=== PATIENT | female | born 1985 | race Caucasian/White ===

== ENCOUNTER 2018-08-26 12:53 | Emergency (ER) | payer BC ==
[2018-08-26 13:27] VITALS: BP 123/68
--- NOTE | 2018-08-26 13:48 | UC ---
Hand/Wrist HPI - HPI Summary HPI Summary: Fall a few days ago walking and playing in a [place] with children while wearing flip flops. 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 There is some diffuse tingling of the fingers. NO prior fracture or surgery to that arm. - History Of Current Complaint Chief Complaint: UCUpperExtremity Stated Complaint: S/P FALL,RIGHT ARM INJURY Time Seen by Provider: 08/26/18 13:32 Hx Obtained From: Patient Hx Last Menstrual Period: 08/17/18 Onset/Duration: Sudden Onset, Lasting Days, Still Present Severity Initially: Moderate Severity Currently: Moderate Pain Intensity: 6 Pain Scale Used: 0-10 Numeric Character Of Pain: Dull, Aching, Stiffness Aggravating Factor(s): Movement, Lifting, Flexion, Extension, Internal/External Rotation Alleviating Factor(s): Rest Associated Signs And Symptoms: Positive: Numbness/Tingling, Other - superficial abrasion. Related History: Dominant Hand Right - Allergies/Home Medications Allergies/Adverse Reactions: Allergies Allergy/AdvReac Type Severity Reaction Status Date / Time naproxen [From Treximet] Allergy Difficulty Verified 08/26/18 13:34 Breathing sumatriptan Allergy Difficulty Verified 08/26/18 13:34 Breathing ENVIRONMENTAL/SEASONAL Allergy SNEEZE,ITCHY Uncoded 08/26/18 13:27 WATERY EYES, RUNNY NOSE OLIVES Allergy Difficulty Uncoded 08/26/18 13:27 Breathing Home Medications: Home Medications Ibuprofen 400 mg PO ONCE 08/26/18 [History Confirmed 08/26/18] PMH/Surg Hx/FS Hx/Imm Hx Previously Healthy: No - obesity. No prior forearm disease. - Surgical History Surgical History: Yes Surgery Procedure, Year, and Place: x2. GALL BLADDER REMOVED DEC 2011 - Family History Known Family History: Positive: Non-Contributory - Social History Lives: With Family Alcohol Use: Rare Substance Use Type: None Smoking Status (MU): Never Smoked Tobacco - Immunization History Most Recent Influenza Vaccination: 2014 Most Recent Tetanus Shot: 2011 Most Recent Pneumonia Vaccination: NA Review of Systems All Other Systems Reviewed And Are Negative: Yes Musculoskeletal: Positive: Arthralgia, Myalgia Physical Exam Triage Information Reviewed: Yes Appearance: Well-Appearing, No Pain Distress - she has no apparant pain but prefers to keep right hand still., Obese Vital Signs: Initial Vital Signs Temp 99.7 F 08/26/18 13:21 Pulse 74 08/26/18 13:21 Resp 16 08/26/18 13:21 BP 123/68 08/26/18 13:21 Pulse Ox 99 08/26/18 13:21 Vital Signs Reviewed: Yes Eyes: Positive: Conjunctiva Clear ENT: Positive: Normal ENT inspection, Hearing grossly normal Neck: Positive: Supple, Nontender. Negative: Nuchal Rigidity Respiratory: Positive: No respiratory distress, No accessory muscle use Cardiovascular: Positive: Brisk Capillary Refill Abdomen Description: Positive: No Organomegaly Musculoskeletal Exam: Other - Mild abrasion superficial of the right distal third forearm ulnar side. There is diffuse soft tissue tenderness here. There is no significant lashae tenderness of the snuff box or distal radius. 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 No deformity or loss of flexor strength of the fingers. No metacarpal or phalanges pain/tenderness/bruising. Neurological: Positive: Alert, Muscle Tone Normal. Negative: Fatigued Psychological: Positive: Age Appropriate Behavior Diagnostics - Radiology No standard instances Radiology Interpretation Completed By: ED Physician, Radiologist Hand/Wrist Course/Dx - Differential Dx/Diagnosis Provider Diagnosis: Strain of forearm, right Discharge - Sign-Out/Discharge Documenting (check all that apply): Patient Departure All imaging exams completed and their final reports reviewed: Yes - Discharge Plan Condition: Good Disposition: HOME Patient Education Materials: Arm Pain (ED) Referrals: [facility] NP [Primary Care Provider] - - Billing Disposition and Condition Condition: GOOD Disposition: Home
== END 2018-08-26 13:58 | disposition home or self-care (01) ==
LOC: UCCORT 12:53
DX: S56.911A Strain of unspecified muscles, fascia and tendons at forearm level, right arm, initial encounter (principal); W19.XXXA Unspecified fall, initial encounter; Y93.01 Activity, walking, marching and hiking; Y92.838 Other recreation area as the place of occurrence of the external cause
CPT/HCPCS: 99212; G0463